=== PATIENT | female | born 1955 | race Caucasian/White ===

== ENCOUNTER 2018-04-13 20:15 | Emergency (ER) | payer BC ==
[~2018-04-13] VITALS: Ht 160 cm; Wt 53.5 kg
[2018-04-13 20:29] VITALS: Ht 160 cm; Wt 53.5 kg
[2018-04-13 21:38] VITALS: BP 136/71
== END 2018-04-13 21:38 | disposition home or self-care (01) ==
LOC: ED 20:15
DX: S61.232A Puncture wound without foreign body of right middle finger without damage to nail, initial encounter (principal); M79.7 Fibromyalgia; W22.8XXA Striking against or struck by other objects, initial encounter; Y93.89 Activity, other specified; Y92.89 Other specified places as the place of occurrence of the external cause; Y99.8 Other external cause status
CPT/HCPCS: 90715; J1885